=== PATIENT | female | born 1980 | race Caucasian/White ===

== ENCOUNTER → 2017-06-05 | Outpatient (REF) | payer BC | LOC: M LAB REF 16:19 | DX: J06.9 Acute upper respiratory infection, unspecified (principal) | CPT/HCPCS: 87081 ==

== ENCOUNTER → 2018-02-05 | Outpatient (CLI) | payer BC | LOC: M WUC 16:02 | DX: R06.02 Shortness of breath (principal); R05 Cough | CPT/HCPCS: 71046 ==

== ENCOUNTER → 2019-10-01 | Outpatient (CLI) | payer BC ==
--- NOTE | 2019-10-01 13:05 | REP ---
Clinical: Thyroid nodule. Technique: Real time casas scale and color evaluation using curved array transducer. Findings: The thyroid gland demonstrates relatively normal contour, size, and parenchymal echo texture. The isthmus measures 2.8 mm in width. Right lobe measures 4.1 x 1.6 x 1.3 cm and includes 9 x 8 x 5 mm hypoechoic nonspecific nodule. Left lobe measures 3.7 x 1.3 x 1.0 cm without nodule or abnormality. Impression: Solitary indeterminate hypoechoic nodule in the right lobe. Electronically Signed by Vincent Melgar MD 10/01/2019 12:57 P
== END ==
LOC: M LRY 09:39
PROVIDERS: ATTEND Physician Assistant
DX: E04.1 Nontoxic single thyroid nodule (principal)

== ENCOUNTER → 2021-01-06 | Outpatient (CLI) | payer BC ==
--- NOTE | 2021-01-06 15:35 | REP ---
INDICATION: PAIN COMPARISON: None. TECHNIQUE: AP and frog-lateral views of the left hip FINDINGS: Osseous structures, joint spaces, and surrounding soft tissues are essentially age-appropriate. No evidence for acute or healed injury. No overt arthritic degenerative changes. IMPRESSION: Age-appropriate left hip radiographs. <Electronically signed by Vincent Melgar > 01/06/21 [id number]
== END ==
LOC: M WUC 15:13
PROVIDERS: ATTEND Physician Assistant
DX: M25.552 Pain in left hip (principal)

== ENCOUNTER 2023-06-28 07:27 | Day surgery (SDC) | payer BC ==
[~2023-06-28] VITALS: Ht 180.3 cm; Wt 98.9 kg
[~2023-06-28 07:27] MED LIST: METO1TAB32 PO; VITA100093 PO
[2023-06-28] MEDS: NS 1,000 ML IV ONE (08:14)
[2023-06-28] MEDS ORDERED: propofoL 200 MG/20 ML VIAL As Ordered ONE (08:40)
[2023-06-28] MEDS ORDERED: LIDOCAINE 2% 100MG/5ML SDV (FOR ANES.) As Ordered ONE (08:40)
[2023-06-28 09:13] VITALS: TEMP 98.3
[2023-06-28 09:28] VITALS: BP 182/105; O2SAT 97
== END 2023-06-28 09:48 | disposition home or self-care (01) ==
LOC: M OPP 07:27
PROVIDERS: ATTEND Surgery
DX: R19.4 Change in bowel habit (principal); Z80.0 Family history of malignant neoplasm of digestive organs; K64.1 Second degree hemorrhoids; K63.5 Polyp of colon; I10 Essential (primary) hypertension; Z79.899 Other long term (current) drug therapy; Z88.5 Allergy status to narcotic agent; Z87.891 Personal history of nicotine dependence

== ENCOUNTER → 2024-12-11 | Outpatient (REF) | payer BC | LOC: M LAB REF 17:33 | PROVIDERS: ATTEND Nurse Practitioner Family | DX: R30.0 Dysuria (principal) ==